=== PATIENT | female | born 1995 | race Caucasian/White ===

== ENCOUNTER 2017-07-18 01:48 | Emergency (ER) | payer OTHER ==
[~2017-07-18] VITALS: Ht 149.9 cm; Wt 63.7 kg
[~2017-07-18 01:48] MED LIST: NOHOMEMEDS
[2017-07-18 02:52] LABS: BASOPHIL COUNT 0.1 K/uL (0-0.1); EOSINOPHIL (%) 1.7 % (0-5); EOSINOPHIL COUNT 0.2 K/uL (0-0.3); HEMATOCRIT 39.9 % (36.0-46.0); IMMATURE GRANULOCYTE (%) 0.3 % (0.0-0.7); INSTRUMENT ABS NEUTROPHIL CT 7.1 K/uL; LYMPHOCYTE COUNT 1.3 K/uL (1.0-2.8); MCH 27.8 PG (29.0-34.0); MCHC 34.3 G/DL (30.0-36.0); MCV 80.9 FL (83-99); MEAN PLAT.VOLUME 9.7 uM^3 (9.5-12.4); MONOCYTE (%) 12.6 % (3-12); MONOCYTE COUNT 1.3 K/uL (0-0.8); NEUTROPHIL (%) 71.3 % (45-76); NEUTROPHIL COUNT 7.1 K/uL (1.8-6.4); PLATELET COUNT 214 K/uL (156-360); RBC DIS.WIDTH-SD 38.5 % (39-53); RED BLOOD COUNT 4.93 M/uL (3.80-5.20)
[2017-07-18 03:01] LABS: CHLORIDE 102 mEq/L (99-109); POTASSIUM 3.4 mEq/L (3.7-5.4); SODIUM 132 mEq/L (136-147)
[2017-07-18 03:03] LABS: GLUCOSE 122 mg/dL (70-99)
[2017-07-18 03:04] LABS: ANION GAP 8 MEQ/L (2-14)
[2017-07-18 03:05] LABS: TOTAL BILIRUBIN 0.6 mg/dL (0.0-1.0)
[2017-07-18 03:07] LABS: ALKALINE PHOSPHATASE 59 IU/L (3-129); GFR ESTIMATE (CALCULATED) > 59 mL/min/
[2017-07-18 03:08] LABS: UREA NITROGEN (BUN) 10 mg/dL (9-23)
[2017-07-18 04:35] LABS: ADD MIUA? YES; BILIRUBIN NEGATIVE; BLOOD MODERATE; COLOR AMBER ((YELLOW)); GLUCOSE (STRIP) NEGATIVE; KETONES 5; LEUKOCYTES LARGE; NITRITE NEGATIVE; PROTEIN (STRIP) 30; SPECIFIC GRAVITY 1.025 (1.000-1.030)
[2017-07-18 05:08] LABS: BACTERIA 3+ /HPF; CASTS NONE SEEN /LPF; CRYSTALS NONE SEEN; EPITHELIAL CELLS 3+ /HPF; MUCUS 3+ /LPF; RED BLOOD CELLS 15-20 /HPF (0-5); UCUL ADDED? YES; WHITE BLOOD CELLS 30-40 /HPF (0-5)
[2017-07-18] MEDS ORDERED: MOTRIN600 MG PO (06:21)
[2017-07-18] MEDS ORDERED: CIPRO500 MG PO (06:21)
[2017-07-18 06:35] VITALS: BP 120/89
== END 2017-07-18 06:35 | disposition home or self-care (01) ==
LOC: EME 01:48
PROVIDERS: Emergency Medicine; Nurse Practitioner Family
DX: N39.0 Urinary tract infection, site not specified (principal); E87.6 Hypokalemia; E87.1 Hypo-osmolality and hyponatremia
CPT/HCPCS: 80053; 81003; 83605; 85025; 87040; 87077; 87086; 87186; 87502; 99281; 99284